=== PATIENT | female | born 1995 | race Caucasian/White ===

== ENCOUNTER 2017-01-03 10:53 | Emergency (ER) | payer BC ==
[2017-01-03] MEDS ORDERED: guaiFENesin LIQ* 100 MG/5 ML UDC PO ONE ×2 (11:30→12:17)
--- NOTE | 2017-01-03 11:32 | ED ---
Influenza-Like Illness - HPI Summary HPI Summary: Patient presents to the with CC of sore throat, cough with congestion, fevers , VALERIO, ear pain and weakness x 3 days which has been worsening. She denies chills or sweats. She notes to some midsternal chest pain while coughing. She denies sick contacts or travel. Denies receiving the flu vaccine this year. Hx of strep throat, but states this feels different. Denies N/V/C but endorses diarrhea. She has been taking tylenol and ibuprofen daily and temp was 99.5 this morning. Patient is afebrile on arrival. She denies abdominal pain. She denies hx of PNA. 98.4 on recheck of temp. - History of Current Complaint Chief Complaint: UCGeneralIllness Time Seen by Provider: 01/03/17 11:09 Hx Obtained From: Patient Onset/Duration: Gradual Onset Severity: Moderate Associated Signs & Symptoms: Fever, T Max - 99.5, F/C, Cough, Sore Throat, Nasal Congestion, Headache, Diarrhea - Risk Factors Influenza Risk Factors: Negative - Allergy/Home Medications Allergies/Adverse Reactions: Allergies Allergy/AdvReac Type Severity Reaction Status Date / Time Sulfa Antibiotics Allergy Hives Verified 01/03/17 11:04 PMH/Surg Hx/FS Hx/Imm Hx Previously Healthy: Yes Endocrine/Hematology History: Denies: Hx Diabetes, Hx Thyroid Disease Cardiovascular History: Denies: Hx Hypertension Respiratory History: Denies: Hx Asthma, Hx Chronic Obstructive Pulmonary Disease (COPD) GI History: Denies: Hx Ulcer - Surgical History Surgery Procedure, Year, and Place: appy - Immunization History Hx Pertussis Vaccination: No Immunizations Up to Date: Yes Infectious Disease History: No Infectious Disease History: Denies: Hx Clostridium Difficile, Hx Hepatitis, Hx Human Immunodeficiency Virus (HIV), Hx of Known/Suspected MRSA, Hx Shingles, Hx Tuberculosis, Hx Known/ Suspected VRE, Hx Known/Suspected VRSA, History Other Infectious Disease, Traveled Outside the [place] in Last 30 Days - Social History Occupation: Employed Part-time Lives: Alone Alcohol Use: Occasionally Hx Substance Use: No Substance Use Type: Reports: None Hx Tobacco Use: No Smoking Status (MU): Never Smoked Tobacco Review of Systems Constitutional: Negative Positive: Fever, Chills, Fatigue, Skin Diaphoresis Eyes: Negative Negative: Blurred Vision, Diplopia Positive: Sore Throat, Nasal Discharge Positive: Chest Pain - with cough Positive: Shortness Of Breath, Cough Gastrointestinal: Negative Positive: no symptoms reported, see HPI Musculoskeletal: Negative Skin: Negative Positive: Headache Psychological: Normal All Other Systems Reviewed And Are Negative: Yes Physical Exam Triage Information Reviewed: Yes Vital Signs On Initial Exam: Initial Vitals Temp Pulse Resp BP Pulse Ox 98.5 F 61 16 117/76 98 01/03/17 10:57 01/03/17 10:57 01/03/17 10:57 01/03/17 10:57 01/03/17 10:57 Vital Signs Reviewed: Yes Appearance: Positive: Well-Appearing, Well-Nourished Skin: Positive: Warm, Skin Color Reflects Adequate Perfusion, Diaphoretic Head/Face: Positive: Normal Head/Face Inspection, Temporal Artery Tenderness Eyes: Positive: EOMI, DANIAL, Conjunctiva Clear ENT: Positive: Pharynx normal, Nasal congestion, Nasal drainage, TMs normal Neck: Positive: Supple, No Lymphadenopathy Respiratory/Lung Sounds: Positive: Rhonchi - left lung base Cardiovascular: Positive: Normal, RRR, Pulses are Symmetrical in both Upper and Lower Extremities Abdomen Description: Positive: Nontender, Soft Bowel Sounds: Positive: Present Musculoskeletal: Positive: Normal, Strength/ROM Intact Neurological: Positive: Speech Normal Psychiatric: Positive: Normal, Affect/Mood Appropriate Diagnostics - Vital Signs Vital Signs Temp Pulse Resp BP Pulse Ox 01/03/17 10:57 98.5 F 61 16 117/76 98 - Laboratory Lab Results: Lab Results 01/03/17 Range/Units 11:05 Group A Strep Rapid Negative (Negative) Lab Statement: Any lab studies that have been ordered have been reviewed, and results considered in the medical decision making process. Flu Symptom Course/Dx - Course Course Of Treatment: Given nebulizer treatment for SOB. Robitussin given for cough. Xray taken for rhonchorous lung sounds - normal findings. Strep and flu negative. Patient is given robitussin with codeine, prednisone, and mucinex. VS stable. Patient appears to be diaphoretic after coughing. Discussed viral vs. bacterial infections. Nebulizer given and patient feeling improved. She is to follow up with PCP and strict instructions on returning to UC or ED if symptoms become worse. She is agreeable to plan and discharge. - Diagnoses Differential Diagnosis/HQI/PQRI: Positive: Bronchitis, Broncholiolitis, Influenza Provider Diagnoses: Bronchitis Discharge - Discharge Plan Condition: Stable Disposition: HOME Prescriptions: Guaifenesin/Pseudo 600/60(NF) [Mucinex D 600/60 (NF)] 1 tab PO Q12H #15 tab guaiFENesin/CODIEN 100MG-10MG* [Robitussin AC 100Mg-10Mg*] 10 ml PO BEDTIME # 120 udc MDD 10 predniSONE TAB* [Deltasone TAB*] 50 mg PO DAILY #5 tab MDD 1 Patient Education Materials: Prednisone (By mouth), Antitussive/Expectorant ( By mouth), Acute Cough (ED) Forms: *School Release Referrals: [facility] [Primary Care Provider] - Additional Instructions: Follow up with PCP Take the next few days off an rest Humidifer in the home will help Honey, tea, lemon, warm liquids, warm soups robitussin with codeine only as prescribed, no more than 2 teaspoons up to every 4-6 hours mucinex - take 1 tab in the morning and at bedtime prednisone - take 1 tab once daily for 5 days if you have any worsening symptoms or if you fail to improve, return to the
[2017-01-03] MEDS ORDERED: Albuterol/Ipratropium NEB.SOL* Albuterol 2.5 MG/Ipratropium 0.5 MG 3 ML INH ONE (11:34)
[2017-01-03 12:09] VITALS: BP 120/76
--- NOTE | 2017-01-03 12:10 | RAD ---
HISTORY: Left lung rhonchi COMPARISONS: None VIEWS: 4: Frontal dual-energy and lateral views of the chest. FINDINGS: CARDIOMEDIASTINAL SILHOUETTE: The cardiomediastinal silhouette is normal. BOGDAN: The bogdan are normal. PLEURA: The costophrenic angles are sharp. No pleural abnormalities are noted. LUNG PARENCHYMA: The lungs are clear. ABDOMEN: The upper abdomen is clear. There is no subphrenic gas. BONES AND SOFT TISSUES: No bone or soft tissue abnormalities are noted. OTHER: None. IMPRESSION: NO ACTIVE CARDIOPULMONARY DISEASE.
== END 2017-01-03 12:42 | disposition home or self-care (01) ==
LOC: UCEAST 10:53
DX: J40 Bronchitis, not specified as acute or chronic (principal)
CPT/HCPCS: 71020; 87502; 87651; 99203; A9270-GY; G0463

== ENCOUNTER 2017-09-01 04:57 | Emergency (ER) | payer BC ==
[2017-09-01] MEDS ORDERED: Metoclopramide IV* 5 MG/ML 2 ML VIAL IV ONE (05:39)
[2017-09-01] MEDS ORDERED: NS 0.9% 1000 ML* 1,000 ML IV ONE (05:39)
[2017-09-01] MEDS ORDERED: Metoclopramide IV* 5 MG/ML 2 ML VIAL ONE (05:40)
--- NOTE | 2017-09-01 05:50 | ED ---
Nausea/Vomiting/Diarrhea HPI - HPI Summary HPI Summary: And is a 21-year-old female who presents emergency department for acute onset nausea and vomiting that started around 0200. Associated symptoms of upper abdominal pain. Denies diarrhea, urinary symptoms, recent upper respiratory symptoms. 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 No recent travels. She is no past medical history. Surgical history of appendectomy. Symptoms are moderate in severity. No current modifying factors. - History of Current Complaint Chief Complaint: EDNauseaVomitDiarrh Stated Complaint: VOMITING Time Seen by Provider: 09/01/17 05:34 Hx Obtained From: Patient Hx Last Menstrual Period: [id number] Pain Intensity: 6 - Allergies/Home Medications Allergies/Adverse Reactions: Allergies Allergy/AdvReac Type Severity Reaction Status Date / Time Sulfa (Sulfonamide Allergy Hives Verified 09/01/17 05:05 Antibiotics) PMH/Surg Hx/FS Hx/Imm Hx Previously Healthy: Yes Endocrine/Hematology History: Denies: Hx Diabetes, Hx Thyroid Disease Cardiovascular History: Denies: Hx Hypertension Respiratory History: Denies: Hx Asthma, Hx Chronic Obstructive Pulmonary Disease (COPD) GI History: Denies: Hx Ulcer - Surgical History Surgery Procedure, Year, and Place: appy Infectious Disease History: No Infectious Disease History: Denies: Hx Clostridium Difficile, Hx Hepatitis, Hx Human Immunodeficiency Virus (HIV), Hx of Known/Suspected MRSA, Hx Shingles, Hx Tuberculosis, Hx Known/ Suspected VRE, Hx Known/Suspected VRSA, History Other Infectious Disease, Traveled Outside the [place] in Last 30 Days - Social History Occupation: Employed Full-time Lives: With Family Alcohol Use: Occasionally Hx Substance Use: No Substance Use Type: Reports: None Hx Tobacco Use: No Smoking Status (MU): Never Smoked Tobacco Review of Systems Constitutional: Negative Negative: Fever, Chills Eyes: Negative ENT: Negative Cardiovascular: Negative Respiratory: Negative Positive: Abdominal Pain, Vomiting, Nausea. Negative: Diarrhea Genitourinary: Negative Musculoskeletal: Negative Skin: Negative Neurological: Negative All Other Systems Reviewed And Are Negative: Yes Physical Exam Triage Information Reviewed: Yes Vital Signs On Initial Exam: Initial Vitals Temp Pulse Resp BP Pulse Ox 98.3 F 82 16 127/65 98 09/01/17 05:04 09/01/17 05:04 09/01/17 05:04 09/01/17 05:04 09/01/17 05:04 Vital Signs Reviewed: Yes Appearance: Positive: Pain Distress - Patient lying on bed, appears in pain but nontoxic. Mother present. Head/Face: Positive: Normal Head/Face Inspection Eyes: Positive: Normal, DANIAL Neck: Positive: Supple Respiratory/Lung Sounds: Positive: Clear to Auscultation Cardiovascular: Positive: Normal, RRR Abdomen Description: Positive: Other: - Moderate tenderness to the right and left upper quadrants. No rebound tenderness or guarding. Musculoskeletal: Positive: Normal Neurological: Positive: Normal, CN Intact II-III Psychiatric: Positive: Normal Diagnostics - Vital Signs Vital Signs Temp Pulse Resp BP Pulse Ox 09/01/17 05:37 75 97 09/01/17 05:04 98.3 F 82 16 127/65 98 - Laboratory Result Diagrams: 09/01/17 05:52 09/01/17 05:52 Lab Statement: Any lab studies that have been ordered have been reviewed, and results considered in the medical decision making process. Re-Evaluation - Re-Evaluation First Eval Re-Evaluation Time: 07:30 Change: Improved - Pt. resting comfortably. Her nausea was improved but is started to return. Will give ODT zofran and attempt PO challenge. She states her abd. pain has improved. Labs are unremarkable. Naus/Vom/Diarrhea Course/Dx - Course Course Of Treatment: Patient presenting with vomiting and upper abdominal pain. Start IV fluids, given IV Reglan. Will obtain basic labs and reassess. Labs are unremarkable. On reexamination patient's nausea has improved but is returning. ODT Zofran ordered. Patient was able to tolerate by mouth fluids and states her abdominal pain is improving she is feeling better this time. Labs are unremarkable. Suspect viral etiology. Zofran prescribed. Advised close follow-up with PCP. To return to the ER for uncontrollable vomiting, increased abdominal pain or if concerned. Patient understands and agrees with plan. - Differential Dx/Diagnosis Differential Diagnoses - Female: , Gastroenteritis (Viral), Gastroenteritis (Bacterial), Vomiting, Cystitis Provider Diagnoses: Viral gastroenteritis, nausea and vomiting Condition At Discharge: Good Discharge - Sign-Out/Discharge Documenting (check all that apply): Discharge/Admit/Transfer - Discharge Plan Condition: Good Disposition: HOME Prescriptions: Ondansetron TAB* [Zofran 4 MG Tab*] 4 mg PO Q6H PRN #12 tab PRN Reason: Nausea Patient Education Materials: Gastroenteritis (ED), Acute Nausea and Vomiting ( ED) Referrals: [facility] Pravin DUMONT [Primary Care Provider] - Additional Instructions: Follow up with Health Clinic if needed Zofran as directed Clear liquid diet x 24 hours Increase fluids Return to ER for uncontrollable vomiting, increased abdominal pain or if concerned - Billing Disposition and Condition Condition: GOOD Disposition: HOME
[2017-09-01 06:07] LABS: ABS Basophils 0 10^3/ul (0-0.2); ABS Eosinophils 0.1 10^3/ul (0-0.6); ABS Lymphocytes 0.5 10^3/ul (1.0-4.8); ABS Monocytes 0.5 10^3/ul (0-0.8); ABS Neutrophils 6.2 10^3/ul (1.5-7.7); ABS Nucleated RBC 0 10^3/ul; Eosinophil % 1.5 % (0-6); Hematocrit 39 % (35-47); Hemoglobin 13.4 g/dl (12.0-16.0); Lymphocyte % 6.6 % (25-47); Mean Corpuscular HGB Conc 35 g/dl (31-36); Mean Corpuscular Hemoglobin 33 pg (27-31); Mean Corpuscular Volume 95 fL (80-97); Mean Platelet Volume 8.8 um3 (7.4-10.4); Nucleated Red Blood Cells % 0; Platelet Count 194 10^3/ul (150-450); Red Blood Count 4.06 10^6/ul (4.0-5.4); Red Cell Distribution Width 12 % (10.5-15); White Blood Count 7.3 10^3/ul (3.5-10.8)
[2017-09-01 06:22] LABS: EGFR Non-African American 94.3 (>60)
[2017-09-01 06:44] LABS: Urine Appearance Clear; Urine Blood 2+ (Negative); Urine Color Yellow; Urine Ketones Negative (Negative); Urine Protein Negative (Negative); Urine Red Blood Cell Trace(0-2/hpf) (Absent); Urine Specific Gravity 1.013 (1.010-1.030); Urine Urobilinogen Negative (Negative); Urine White Blood Cell Trace(0-5/hpf) (Absent)
[2017-09-01] MEDS ORDERED: Ondansetron ODT TAB* 4 MG PO ONE (07:19)
[2017-09-01 09:02] VITALS: BP 115/66
== END 2017-09-01 08:10 | disposition home or self-care (01) ==
LOC: ED 04:57
DX: A08.4 Viral intestinal infection, unspecified (principal)
CPT/HCPCS: 36415; 80053; 81003; 81015; 83690; 84702; 85025; 87086; 96361; 96374; 99282; A9270-GY; J2765